=== PATIENT | male | born 1990 | race Caucasian/White ===

== ENCOUNTER 2020-06-26 17:47 | Emergency (ER) | payer OTHER ==
[~2020-06-26] VITALS: Ht 180.3 cm; Wt 72.0 kg
[2020-06-26] MEDS ORDERED: KETOROLAC 30 MG/1 ML IM ONE (18:00)
--- NOTE | 2020-06-26 18:15 | NUR ---
per md po challenge was attempted and pt was unsuccesful. pt stated he feels like something is stuck md made aware.
[2020-06-26] MEDS ORDERED: KETOROLAC 30 MG/1 ML ONE (18:22)
[2020-06-26] MEDS ORDERED: GLUCAGON 1 MG ONE (18:22)
[2020-06-26] MEDS ORDERED: KETOROLAC 30 MG/1 ML IVPush ONE (18:30)
[2020-06-26] MEDS ORDERED: GLUCAGON 1 MG IVPush ONE (18:30)
[2020-06-26 19:52] VITALS: BP 102/60
== END 2020-06-26 19:54 | disposition home or self-care (01) ==
LOC: ED 18:13
DX: S10.15XA Superficial foreign body of throat, initial encounter (principal); R07.89 Other chest pain; R00.1 Bradycardia, unspecified; X58.XXXA Exposure to other specified factors, initial encounter; Y93.89 Activity, other specified; Y92.89 Other specified places as the place of occurrence of the external cause; Y99.8 Other external cause status
CPT/HCPCS: 71101; 74220; 93005; 96374; 96375; 99284; J1610; J1885